=== PATIENT | female | born 1955 | race Caucasian/White ===

== ENCOUNTER 2020-06-18 15:27 | Outpatient (CLI) | payer BC, SELFPAY ==
--- NOTE | 2020-06-18 15:15 | DI.RAD_ITS ---
EXAM: XR KNEE LT 4V AP,LAT,NIKOLAY,PAT CLINICAL HISTORY: pain. TECHNIQUE: 2D digital imaging was performed. COMPARISON: No exams were available for comparison FINDINGS: There is no evidence fracture but there is a joint effusion signifying internal derangement. No join t space narrowing or osteophytes. No osteochondral defects evident. No osseous lesions and bone den sity appears age appropriate. IMPRESSION: No fractures but there is a joint effusion signifying probable internal derangement. If clinically i ndicated follow-up MRI can be performed. DATA REPOSITORY: RADIATION DOSE DELIVERED:
== END 2020-06-18 15:47 ==
PROVIDERS: Visit Provider Physician Assistant Surgical
DX: M25.562 Pain in left knee (principal); M25.462 Effusion, left knee
CPT/HCPCS: 73564